=== PATIENT | male | born 1970 | race Caucasian/White ===

== ENCOUNTER 2019-08-05 | Emergency (ER) | payer OTHER ==
[2019-08-05 16:54] LABS: HEMATOCRIT 27.5 % (39.0-50.0); HEMOGLOBIN 8.9 g/dl (14.0-18.0); IMMATURE GRANULOCYTES 0.3 % (0.0-5.0); MEAN CELL VOLUME 96.2 fL CALC (80.0-100.0); MEAN CORPUSCULAR HGB 31.1 pG CALC (26.0-32.0); MEAN CORPUSCULAR HGB CONC 32.4 g/L CALC (32.0-36.0); NEUT# 7.31 thou/uL (1.82-7.42); RED BLOOD COUNT 2.86 mill/uL (4.70-6.10); RED CELL DISTRI WIDTH 13.4 % (11.5-15.5)
[2019-08-05 17:11] LABS: ACT PARTIAL THROMBO TIME 24.7 SECONDS (20.0-32.5); INTERNATIONAL NORMALIZED RATIO 1.1 RATIO (0.7-1.3); PROTHROMBIN TIME 11.1 SECONDS (9.0-12.5)
[2019-08-05 17:12] LABS: ALKALINE PHOSPHATASE 40 u/l (38-126); ANION GAP 11 (6-22 (CALC)); BILIRUBIN, TOTAL 0.2 mg/dL (0.0-1.4); BUN 40 mg/dL (9-20); BUN/CREATININE RATIO 57 (12-20 (CALC)); CARBON DIOXIDE 23 mmol/l (22-30); CHLORIDE 108 mmol/l (95-108); CREATININE 0.7 mg/dL (0.7-1.3); ETHYL ALCOHOL 0 mg/dl (0-30); GFR > 60 ML/MIN (>=60 (CALC)); GFR FOR AFR.AMER. > 60 ML/MIN (>=60 (CALC)); LIPASE 94 u/l (23-300); POTASSIUM 4.4 mmol/l (3.5-5.1); SGOT/AST 17 u/l (17-59); SODIUM 138 mmol/l (137-146); TOTAL PROTEIN 5.5 g/dL (6.3-8.2)
[2019-08-05 18:00] LABS: BARBITURATES NEGATIVE (NEGATIVE); COCAINE NEGATIVE (NEGATIVE); METHADONE NEGATIVE (NEGATIVE); OXCYCODONE NEGATIVE (NEGATIVE); TETRAHYDROCANNABIONOL NEGATIVE (NEGATIVE); TRICYLIC ANTIDEPRESSANTS NEGATIVE (NEGATIVE)
== END 2019-08-05 18:04 | disposition short-term general hospital (02) | DRG 379 ==
DX: K92.0 Hematemesis (principal); R11.0 Nausea; R10.13 Epigastric pain
CPT/HCPCS: Q9967; S0164